=== PATIENT | male | born 2000 | race Caucasian/White ===

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

== ENCOUNTER 2021-04-23 12:20 | Emergency (ER) | payer BC, SELFPAY ==
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
== END 2021-04-23 13:05 | disposition left against medical advice (07) ==
LOC: ER 12:20
DX: Z53.21 Procedure and treatment not carried out due to patient leaving prior to being seen by health care provider (principal)
CPT/HCPCS: 99281

== ENCOUNTER 2023-04-07 00:02 | Emergency (ER) | payer BC, SELFPAY ==
[2023-04-07 00:28] LABS: Specific Gravity 1.014 (1.005-1.030); Urine Bilirubin NEGATIVE (Negative); Urine Blood Negative (Negative); Urine Clarity Clear (Clear); Urine Color Light-Yellow (Yellow); Urine Glucose NEGATIVE (Negative); Urine Protein NEGATIVE (Negative); Urine Urobilinogen Normal (Normal); Urine pH 5.5 (5.0-7.0)
[2023-04-07] MEDS ORDERED: KETOROLAC 30 MG/ML INJ ONE (00:44)
[2023-04-07] MEDS ORDERED: ONDANSETRON 4 MG/2 ML VIAL ONE (00:44)
[2023-04-07 00:56] LABS: Albumin 4.1 g/dL (3.4-5.0); Bilirubin Total 0.4 mg/dL (0.2-1.0); Potassium 3.7 mEq/L (3.5-5.1); Protein, Total 7.6 g/dL (6.4-8.2)
[2023-04-07 01:09] LABS: Absolute Lymphocytes (CBC) 2.2 K/uL (0.7-4.9); Hematocrit 43.9 % (39.6-49.0); Lymphocytes % 36.4 % (15.3-44.8); MCV 84.3 fL (80-100); MPV 8.9 fL (7.6-11.3); Platelets 213 thou/uL (152-406); RBC Red Blood Cell Count 5.21 M/uL (4.33-5.43)
[2023-04-07] MEDS ORDERED: NA CHLORIDE 0.9% 1,000 ML ONE (01:17)
--- NOTE | 2023-04-07 01:47 | EDPHYS ---
Physician Documentation [facility] Name: Oseas Curtis Jr Age: 22 yrs Sex: Male : 2000 Arrival Date: 04/07/2023 Time: 00:02 Bed 19 Private MD: ED Physician Dago Davis HPI: 04/07 00:13 This 22 yrs old Male presents to ER via EMS with complaints of Abdominal Pain. cp 00:13 The patient presents with abdominal pain in the right upper quadrant. cp 00:13 Onset: The symptoms/episode began/occurred yesterday. cp 00:13 The symptoms radiate to Associated signs and symptoms: Pertinent positives: nausea and cp vomiting, Pertinent negatives: chest pain, constipation, diarrhea, fever, shortness of breath, testicular pain, vomiting blood. 00:13 The symptoms are described as crampy, throbbing. cp 00:13 Severity of pain: in the emergency department the pain is unchanged despite EMS cp interventions. It is unknown whether or not the patient has had similar symptoms in the past. Historical: - Allergies: 00:14 No Known Allergies; ha1 - PMHx: 00:14 liver problem; ha1 - Immunization history:: Adult Immunizations up to date. - Social history:: Smoking status: Patient uses [employer] . ROS: 00:15 Constitutional: Negative for body aches, chills, fever, poor PO intake, cp 00:15 Eyes: Negative for injury, pain, redness, and discharge, cp 00:15 Neck: Negative for pain with movement, pain at rest, stiffness, 00:15 Cardiovascular: Negative for chest pain, edema, palpitations, 00:15 Respiratory: Negative for cough, shortness of breath, wheezing, 00:15 Abdomen/GI: Positive for abdominal pain, nausea and vomiting, abdominal cramps, of the right upper quadrant, Negative for diarrhea, constipation, abdominal distension, rectal pain, bowel incontinence, 00:15 Back: Positive for radiated pain, Negative for injury or acute deformity, decreased range of motion, 00:15 : Negative for urinary symptoms, hematuria, pelvic pain, testicular pain 00:15 Neuro: Negative for altered mental status, dizziness, headache, weakness, 00:15 All other systems are negative, Exam: 00:20 Constitutional: The patient appears in no acute distress, alert, awake, cp non-diaphoretic, non-toxic, well developed, well nourished, uncomfortable, 00:20 Head/Face: Normocephalic, atraumatic. cp 00:20 Eyes: Periorbital structures: appear normal, Conjunctiva: normal, no exudate, no injection, Sclera: no appreciated abnormality, Lids and lashes: appear normal, bilaterally, 00:20 ENT: External ear(s): are unremarkable, Nose: is normal, Mouth: Lips: moist, Oral mucosa: pink and intact, moist, Posterior pharynx: is normal, airway is patent, no erythema, no exudate, 00:20 Chest/axilla: Inspection: normal, Palpation: is normal, no crepitus, no tenderness, 00:20 Cardiovascular: Rate: normal, Rhythm: regular, cp 00:20 Respiratory: the patient does not display signs of respiratory distress, Respirations: cp normal, no use of accessory muscles, no retractions, labored breathing, is not present, Breath sounds: are clear throughout, no decreased breath sounds, no stridor, no wheezing, 00:20 Abdomen/GI: Inspection: abdomen appears normal, Bowel sounds: active, all quadrants, Palpation: soft, in all quadrants, moderate abdominal tenderness, in the right upper quadrant and right lower quadrant, rebound tenderness, is not appreciated, voluntary guarding, is elicited in the right upper quadrant, 00:20 Back: pain, that is moderate, of the right mid back, ROM is painless, Vital Signs: 00:08 BP 108 / 82; Pulse 81; Resp 18; Temp 98.2(O); Pulse Ox 100% on R/A; Weight 68.49 kg; oe Height 5 ft. 9 in. ; Pain 8/10; 00:48 BP 103 / 70; Pulse 75; Resp 18 S; Pulse Ox 99% on R/A; ha1 01:46 BP 108 / 67; Pulse 82; Resp 17 S; Pulse Ox 97% on R/A; ha1 00:08 Body Mass Index 22.30 (68.49 kg, 175.26 cm) oe 00:08 Pain Scale: Adult oe MDM: 00:10 Patient medically screened. cp 01:00 Differential diagnosis: appendicitis, Cholelithiasis, non-specific abd pain, cp pancreatitis, Peptic Ulcer Disease, Perf. Duodenal Ulcer, Perf. Gastric Ulcer, Prostatitis, Pyelonephritis, Testicular Torsion, Ureterolithiasis, urinary tract infection. 01:45 Data reviewed: vital signs, nurses notes, lab test result(s), radiologic studies, CT cp scan, I have discussed the patient's presentation/case with the attending Emergency Department Physician; and as a result, I will discharge patient. 01:45 I considered the following discharge prescriptions or medication management in the emergency department Medications were administered in the Emergency Department. See MAR. Counseling: I had a detailed discussion with the patient and/or guardian regarding the historical points, exam findings, and any diagnostic results supporting the discharge/admit diagnosis, lab results, radiology results, to return to the emergency department if symptoms worsen or persist or if there are any questions or concerns that arise at home. Response to treatment: the patient's symptoms have markedly improved after treatment, and as a result, I will discharge patient. Special discussion: Based on the patient's Hx, exam, and Dx evaluation, there is no indication for emergent surgery or inpatient Tx. It is understood by the patient/guardian that if the Sx's persist or worsen they need to return immediately for re-evaluation. 04/07 00:10 Order name: CBC with Diff; Complete Time: 01:21 04/07 01:21 Interpretation: Reviewed. 04/07 00:10 Order name: CMP; Complete Time: 01:02 04/07 01:02 Interpretation: Normal except: CL 109; CA 8.4. 04/07 00:10 Order name: Lipase; Complete Time: 01:02 04/07 01:02 Interpretation: Reviewed. 04/07 00:10 Order name: Urinalysis w/ reflexes; Complete Time: 00:55 04/07 00:10 Order name: CT Abd/Pelvis - IV Contrast Only 04/07 00:10 Order name: IV Saline Lock; Complete Time: 00:27 04/07 00:10 Order name: Labs collected and sent; Complete Time: 00:27 Administered Medications: 00:30 Drug: NS 0.9% IV 1000 ml IV at 1 bolus Per protocol; 1000 mL bolus Route: IV; Rate: 1 ha1 bolus; Site: right antecubital; 00:31 Drug: Ondansetron IVP 4 mg IVP once; over 2 minutes Route: IVP; Site: right antecubital;ha1 00:33 Drug: TORadol - Ketorolac IVP 15 mg IVP once Route: IVP; Site: right antecubital; ha1 01:19 Drug: NS 0.9% IV 1000 ml IV at 1 bolus Per protocol; 1000 mL bolus Route: IV; Rate: 1 ha1 bolus; Site: right antecubital; Disposition: 03:17 Co-signature as Attending Physician, Dago Davis MD I reviewed the patient's care rt provided by the Advanced Practice Provider and agree with the diagnosis and treatment plan. Disposition Summary: 04/07/23 01:46 Discharge Ordered Notes: Location: Home cp Condition: Stable cp Problem: new cp Symptoms: have improved cp Diagnosis - Abdominal pain, unspecified cp Followup: cp - With: Private Physician - When: 2 - 3 days - Reason: Recheck today's complaints Discharge Instructions: - Discharge Summary Sheet cp - Abdominal Pain, Adult cp Forms: - Medication Reconciliation Form cp - Thank You Letter cp - Antibiotic Education cp - Prescription Opioid Use cp - Patient Portal Instructions cp - Leadership Thank You Letter cp Prescriptions: - Pepcid 20 mg Oral Tablet - take 1 tablet ORAL route every 12 hours for 10 days; 20 tablet; Refills: 0, cp Product Selection Permitted Signatures: Dispatcher [employer] EDMS Wayne Bolaños PA PA cp Janae Denis RN RN ha1 Dago Davis MD MD rt Corrections: (The following items were deleted from the chart) 00:56 00:13 The patient presents with abdominal pain right side of abdomen cp cp
--- NOTE | 2023-04-07 01:47 | ER ---
Nurse's Notes [facility] Name: Oseas Curtis Jr Age: 22 yrs Sex: Male : 2000 Arrival Date: 04/07/2023 Time: 00:02 Bed 19 Private MD: Diagnosis: Abdominal pain, unspecified Presentation: 04/07 00:08 Chief complaint: EMS states: 22 year old male coming from [facility]. Patient ha1 report severe pain on the right upper quadrant, tremors, nausea, and vomiting. also, he reports being an alcoholic and has been diagnosed with liver problems before. 4 mg of Zofran and 15 mg of Ketorolac were given on route. Coronavirus screen: Vaccine status: Patient reports receiving the 2nd dose of the covid vaccine. Ebola Screen: No symptoms or risks identified at this time. Initial Sepsis Screen: Does the patient meet any 2 criteria? No. Patient's initial sepsis screen is negative. Does the patient have a suspected source of infection? No. Patient's initial sepsis screen is negative. Risk Assessment: Do you want to hurt yourself or someone else? Patient reports no desire to harm self or others. Onset of symptoms was April 07, 2023. 00:08 Method Of Arrival: EMS: [facility] ha1 00:08 Acuity: JESE 3 ha1 Triage Assessment: 00:14 General: Appears uncomfortable, Behavior is cooperative. Pain: Complains of pain in ha1 right upper quadrant Pain does not radiate. Pain currently is 9 out of 10 on a pain scale. Quality of pain is described as crampy, throbbing. Neuro: Level of Consciousness is awake, alert, obeys commands, Oriented to person, place, time, situation. Cardiovascular: Heart tones S1 S2 present Capillary refill < 3 seconds Patient's skin is warm and dry. Respiratory: Airway is patent Respiratory effort is even, unlabored, Respiratory pattern is regular, symmetrical. GI: Abdomen is flat, non-distended, Reports upper abdominal pain, nausea, vomiting. : No signs and/or symptoms were reported regarding the genitourinary system. Derm: Skin is pink, warm \T\ dry. Musculoskeletal: Circulation, motion, and sensation intact. Range of motion: intact in all extremities, Reports muscle tremors. Historical: - Allergies: 00:14 No Known Allergies; ha1 - PMHx: 00:14 liver problem; ha1 - Immunization history:: Adult Immunizations up to date. - Social history:: Smoking status: Patient uses [employer] . Screenin:17 [facility] ED Fall Risk Assessment (Adult) History of falling in the last 3 months, ha1 including since admission No falls in past 3 months (0 pts) Confusion or Disorientation No (0 pts) Intoxicated or Sedated Yes (3 pts) Impaired Gait No (0 pts) Mobility Assist Device Used No (0 pt) Altered Elimination No (0 pt) Score/Fall Risk Level 0 - 2 = Low Risk Oriented to surroundings, Maintained a safe environment, Educated pt \T\ family on fall prevention, incl call for assistance when getting out of bed, Hourly rounding (assess needs \T\ fall precautionary measures) done. Abuse screen: Denies threats or abuse. Denies injuries from another. Nutritional screening: No deficits noted. Tuberculosis screening: No symptoms or risk factors identified. Assessment: 00:08 Reassessment: see triage assessment. ha1 01:46 Reassessment: Patient and/or family updated on plan of care and expected duration. Pain ha1 level reassessed. Patient is alert, oriented x 3, equal unlabored respirations, skin warm/dry/pink. Vital Signs: 00:08 BP 108 / 82; Pulse 81; Resp 18; Temp 98.2(O); Pulse Ox 100% on R/A; Weight 68.49 kg; oe Height 5 ft. 9 in. ; Pain 8/10; 00:48 BP 103 / 70; Pulse 75; Resp 18 S; Pulse Ox 99% on R/A; ha1 01:46 BP 108 / 67; Pulse 82; Resp 17 S; Pulse Ox 97% on R/A; ha1 00:08 Body Mass Index 22.30 (68.49 kg, 175.26 cm) oe 00:08 Pain Scale: Adult oe ED Course: 00:08 Patient arrived in ED. oe 00:08 Janae Denis RN is Primary Nurse. ha1 00:08 Wayne Bolaños PA is PHCP. cp 00:08 Dago Davis MD is Attending Physician. cp 00:08 Patient has correct armband on for positive identification. Placed in gown. Bed in low ha1 position. Call light in reach. Side rails up X 1. mounted police officer at bedside. 00:08 Arm band placed on right wrist. ha1 00:08 Maintain EMS IV. Dressing intact. Good blood return noted. Site clean \T\ dry. Gauge \T\ varela 1 site: 20 gorge right AC. 00:14 Triage completed. ha1 00:27 CBC with Diff Sent. ha1 00:27 CMP Sent. ha1 00:27 Lipase Sent. ha1 00:27 Urinalysis w/ reflexes Sent. ha1 01:21 CT Abd/Pelvis - IV Contrast Only In Process Unspecified. EDMS 01:52 No provider procedures requiring assistance completed. IV discontinued, intact, ha1 bleeding controlled, No redness/swelling at site. Pressure dressing applied. 01:53 Provided Education on: prescription. ha1 Administered Medications: 00:30 Drug: NS 0.9% IV 1000 ml IV at 1 bolus Per protocol; 1000 mL bolus Route: IV; Rate: 1 ha1 bolus; Site: right antecubital; 00:31 Drug: Ondansetron IVP 4 mg IVP once; over 2 minutes Route: IVP; Site: right antecubital;ha1 00:33 Drug: TORadol - Ketorolac IVP 15 mg IVP once Route: IVP; Site: right antecubital; ha1 01:19 Drug: NS 0.9% IV 1000 ml IV at 1 bolus Per protocol; 1000 mL bolus Route: IV; Rate: 1 ha1 bolus; Site: right antecubital; Medication: 00:18 VIS not applicable for this client. ha1 Outcome: 01:46 Discharge ordered by . stella 01:52 Discharged to Law Enforcement ha1 01:52 Condition: stable 01:52 Discharge instructions given to patient, Instructed on discharge instructions, follow up and referral plans. medication usage, Demonstrated understanding of instructions, follow-up care, medications, Prescriptions given X 1, 01:53 Patient left the ED. ha1 Signatures: Dispatcher [employer] EDMS Wayne Bolaños PA PA cp Espinosa, Orlando oe Ayala, Heidy, RN RN ha1
[2023-04-07 02:16] VITALS: BP 108/67; TEMP 98.2; O2SAT 97
--- NOTE | 2023-04-08 20:10 | RAD REPORT ---
EXAM DESCRIPTION: CT - Abdomen Pelvis W Contrast - 04/07/2023 6:31 am CLINICAL HISTORY: 22 years Male right side abdomen pain COMPARISON: None TECHNIQUE: Images were obtained in axial, sagittal, and coronal planes. Intravenous contrast was adm inistered. This exam was performed according to our departmental dose-optimization program which includes use of Automated Exposure Control, adjustment of the mA and/or kV according to patient size and/or use of iterative reconstruction technique. FINDINGS: No abnormality involving the liver, spleen, pancreas, gallbladder, or adrenal glands bilat erally. No obstructing renal or ureteral calculi bilaterally area and no hydronephrosis bilaterally. Unremark able bladder. Appendix within normal limits. No bowel obstruction, perforation, or inflammation. No abnormality lower lungs bilaterally. No acute osseous abnormality. No abnormality of the abdominal aorta or portal vein. No adenopathy or abnormal fluid collection is s een. IMPRESSION: No acute intra-abdominal abnormality. Appendix within normal limits. No obstructing hayden l or ureteral calculi bilaterally. Electronically signed by: Julia Lu MD 04/07/2023 01:33 AM MANAGER REGISTRATION Due to temporary technical issues with the PACS/Fluency reporting system, reports are being signed by the in house radiologists without review as a courtesy to insure prompt reporting. The interpreting radiologist is fully responsible for the content of the report.
== END 2023-04-07 01:53 | disposition home or self-care (01) ==
LOC: ER 00:02
DX: R10.11 Right upper quadrant pain (principal)
CPT/HCPCS: 36415; 74177; 80053; 81003; 83690; 85025; 96374; 96375; 99284; J2405; J7030; Q9967

== ENCOUNTER 2024-07-27 20:42 | Emergency (ER) | payer BC, SELFPAY ==
--- OUTSIDE RECORDS SUMMARY | 2024-07-27 20:44 | XMS REPORT | Continuity of Care Document ---
Author Name Unknown Address [address] [place] [address] [place] [address] [address] [place] [address] Care Team Providers Care Csw Name Role Phone DARLENE BRIONES Attending Clinician Unavailable Encounters Start Date/Time End Date/Time Encounter Type Admission Type Attending Clinicians Care Facility Care Department Encounter ID Source 2024-04-21 21:41:00 2024-04-21 23:20:00 Emergency ER DARLENE BRIONES [facility] [id number] [facility]
--- NOTE | 2024-07-27 21:58 | ER ---
Nurse's Notes [facility] Name: Oseas Curtis Jr Age: 23 yrs Sex: Male : 2000 Arrival Date: 07/27/2024 Time: 20:42 Bed DIS2 Private MD: Diagnosis: Alcohol abuse;Abdominal pain, unspecified Presentation: 07/27 21:04 Chief complaint: Patient states: That he has been on a recent drinking binge and hasn't cm10 had alcohol since Friday morning. Pt reports that he is now having abdominal pain, nausea, and vomiuting. Coronavirus screen: Client denies travel out of the [place] in the last 14 days. Ebola Screen: Patient denies travel to an Ebola-affected area in the 21 days before illness onset. Initial Sepsis Screen: Does the patient meet any 2 criteria? HR > 90 bpm. Does the patient have a suspected source of infection? No. Patient's initial sepsis screen is negative. Risk Assessment: Do you want to hurt yourself or someone else? Patient reports no desire to harm self or others. Onset of symptoms was July 27, 2024. 21:04 Method Of Arrival: Ambulatory cm10 21:04 Acuity: JESE 3 cm10 Triage Assessment: 21:05 General: Appears in no apparent distress. uncomfortable, Behavior is calm, cooperative. cm10 Pain: Complains of pain in abdomen. Neuro: No deficits noted. Level of Consciousness is awake, alert, obeys commands, Oriented to person, place, time, situation, Appropriate for age. Respiratory: No deficits noted. Airway is patent Respiratory effort is even, unlabored, Respiratory pattern is regular, symmetrical. Historical: - Allergies: 21:03 No Known Allergies; cm10 - PMHx: 21:03 liver problem; cm10 - Immunization history:: Adult Immunizations unknown. - Infectious Disease History:: Denies. - Social history:: Smoking status: Reported history of juuling and/or vaping. Patient uses alcohol, patient/guardian reports recent binge of alcohol consumption. - Family history:: not pertinent. Vital Signs: 21:04 BP 116 / 78; Pulse 96; Resp 18; Temp 98.8; Pulse Ox 94% on R/A; Weight 66.68 kg; Height cm10 5 ft. 7 in. ; Pain 8/10; 21:04 Body Mass Index 23.02 (66.68 kg, 170.18 cm) cm10 21:04 Pain Scale: Adult cm10 ED Course: 20:45 Patient arrived in ED. jj6 20:45 Dago Davis MD is Attending Physician. rt 21:05 Triage completed. cm10 21:06 Arm band placed on right wrist. Patient placed in waiting room. cm10 21:54 Kassi Rodriguez, RN is Primary Nurse. me1 Administered Medications: No medications were administered Outcome: :58 Discharge ordered by . rt 22:02 Eloped from waiting room, after seeing physician Time discovered patient gone: July jb4 2024 at 21:55 22:02 Patient left the ED. jb4 Signatures: Eyal Hancock RN RN jb4 [employer] jj6 Dago Davis MD MD rt Janeth Zaragoza RN MARI 10 Kassi Rodriguez, RN RN me1
--- NOTE | 2024-07-27 21:58 | EDPHYS ---
Physician Documentation [facility] Name: Oseas Curtis Jr Age: 23 yrs Sex: Male : 2000 Arrival Date: 07/27/2024 Time: 20:42 Bed DIS2 Private MD: ED Physician Dago Davis HPI: 07/27 21:13 This 23 yrs old Male presents to ER via Ambulatory with complaints of ETOH Abuse, rt Nausea/Vomiting. 21:13 Patient presents to the ED with an upper, lower abdominal pain with nausea, vomiting rt starting yesterday. Patient states that he has been the last 5 days drinking alcohol. States this has happened previously but denies any previous history of pancreatitis. Denies other acute complaints at this time, symptoms are moderate in severity, no other aggravating alleviating factors.. Historical: - Allergies: 21:03 No Known Allergies; cm10 - PMHx: 21:03 liver problem; cm10 - Immunization history:: Adult Immunizations unknown. - Infectious Disease History:: Denies. - Social history:: Smoking status: Reported history of juuling and/or vaping. Patient uses alcohol, patient/guardian reports recent binge of alcohol consumption. - Family history:: not pertinent. ROS: 21:13 Constitutional: Negative for fever, chills, and weight loss, Cardiovascular: Negative rt for chest pain, palpitations, and edema, Respiratory: Negative for shortness of breath, cough, wheezing, and pleuritic chest pain, MS/Extremity: Negative for injury and deformity, Skin: Negative for injury, rash, and discoloration, Neuro: Negative for headache, weakness, numbness, tingling, and seizure, 21:13 Abdomen/GI: Positive for abdominal pain, nausea and vomiting, Exam: 21:13 Constitutional: This is a well developed, well nourished patient who is awake, alert, rt and in no acute distress. Head/Face: Normocephalic, atraumatic. Chest/axilla: Normal chest wall appearance and motion. Nontender with no deformity. No lesions are appreciated. Cardiovascular: Regular rate and rhythm with a normal S1 and S2. No gallops, murmurs, or rubs. Normal PMI, no JVD. No pulse deficits. Respiratory: Lungs have equal breath sounds bilaterally, clear to auscultation and percussion. No rales, rhonchi or wheezes noted. No increased work of breathing, no retractions or nasal flaring. Skin: Warm, dry with normal turgor. Normal color with no rashes, no lesions, and no evidence of cellulitis. MS/ Extremity: Pulses equal, no cyanosis. Neurovascular intact. Full, normal range of motion. Neuro: Awake and alert, GCS 15, oriented to person, place, time, and situation. Cranial nerves II-XII grossly intact. Motor strength 5/5 in all extremities. Sensory grossly intact. Cerebellar exam normal. Normal gait. 21:13 Abdomen/GI: Mild tenderness diffusely without rebound, guarding, distention, Vital Signs: 21:04 BP 116 / 78; Pulse 96; Resp 18; Temp 98.8; Pulse Ox 94% on R/A; Weight 66.68 kg; Height cm10 5 ft. 7 in. ; Pain 8/10; 21:04 Body Mass Index 23.02 (66.68 kg, 170.18 cm) cm10 21:04 Pain Scale: Adult cm10 MDM: 21:04 Medical Screening Exam initiated rt 21:58 Differential diagnosis: Alcoholic gastritis, pancreatitis, abdominal pain. Data rt reviewed: vital signs, nurses notes. ED course: I evaluated patient in triage, ordered labs, medicines, he eloped from the waiting room without informing staff prior to any laboratory evaluation or medication administration. I was unable to discuss with him risks or benefits of leaving.. 07/27 21:08 Order name: IV Saline Lock rt 07/27 21:08 Order name: Labs collected and sent rt Administered Medications: No medications were administered Disposition Summary: 07/27/24 21:58 Discharge Ordered Notes: Location: Home rt Problem: new rt Symptoms: are unchanged rt Condition: Undetermined rt Diagnosis - Alcohol abuse rt - Abdominal pain, unspecified rt Followup: rt - With: Private Physician - When: 2 - 3 days - Reason: Forms: - Medication Reconciliation Form rt - Antibiotic Education rt - Prescription Opioid Use rt - Patient Portal Instructions rt - Leadership Thank You Letter rt Signatures: Dispatcher [employer] EDWA Dago Davis MD MD rt Janeth Zaragoza RN RN cm10
[2024-07-27 22:20] VITALS: BP 116/78; TEMP 98.8; O2SAT 94
== END 2024-07-27 22:02 | disposition home or self-care (01) ==
LOC: ER 20:42
DX: F10.10 Alcohol abuse, uncomplicated (principal); R10.9 Unspecified abdominal pain
CPT/HCPCS: 99281